=== PATIENT | female | born 1930 | race Caucasian/White ===

== ENCOUNTER 2017-05-14 22:23 | Observation (INO) | payer MEDICARE, OTHER ==
[~2017-05-14] VITALS: Ht 152.4 cm; Wt 47.6 kg
[2017-05-14] MEDS ORDERED: ONDANSETRON 4 MG INJ IV STA (23:23)
[2017-05-14] MEDS ORDERED: SOD CHLORIDE 0.9% 500 ML IV STA (23:23)
[2017-05-14] MEDS ORDERED: morphine 4 MG/ML VIAL IV STA (23:23)
[2017-05-14 23:33] LABS: BASOPHILS % 0.1 % (0.0-2.0); EOSINOPHILS % 0.5 % (0.0-7.0); HEMATOCRIT 40.2 % (37.0-47.0); HEMOGLOBIN 13.2 g/dl (12.0-16.0); LYMPHOCYTES # 0.9 10^3/ul (0.8-2.9); LYMPHOCYTES % 11.7 % (15.0-51.0); MEAN CORPUSCULAR HEMOGLOBIN 30.1 pg (29.0-33.0); MEAN CORPUSCULAR HGB CONC 32.8 g/dl (32.0-37.0); MEAN CORPUSCULAR VOLUME 91.6 fl (82.0-101.0); MONOCYTE # 0.3 10^3/ul (0.3-0.9); MONOCYTES % 4.4 % (0.0-11.0); PLATELET COUNT 179 10^3/UL (140-415); RED BLOOD COUNT 4.39 10^6/ul (4.20-5.40); RED CELL DISTRIBUTION WIDTH 13.2 % (11.5-14.5); WHITE BLOOD COUNT 7.3 10^3/ul (4.8-10.8)
[2017-05-14 23:53] LABS: ALBUMIN/GLOBULIN RATIO 1.21; BILIRUBIN,INDIRECT 0.2 mg/dl (0-1.1); BILIRUBIN,TOTAL 0.2 mg/dl (0.2-1.3); CALCIUM 9.5 mg/dl (8.4-10.2); CREATININE 0.86 mg/dl (0.44-1.00); POTASSIUM 4.2 mmol/L (3.5-5.1); TOTAL PROTEIN 7.3 g/dl (6.1-8.1)
--- NOTE | 2017-05-15 00:26 | RADRPT ---
PROCEDURE: CT Abdomen and pelvis without contrast. CLINICAL INDICATION: Abdominal pain. TECHNIQUE: CT scan of the abdomen and pelvis was performed on a multi-detector high-resolution CT scanner. Contiguous axial images were obtained from the lung bases to the ischial tuberosities wit hout intravenous contrast. Coronal and sagittal reformatted images were also obtained. Images were reviewed on the PACS workstation. One or more of the following dose reduction techniques were used: - Automated exposure control. - Adjustment of the mA and/or kV according to patient size. - Use of iterative reconstruction technique. Exam CTD/vol = 10.96 mGy. Total exam DLP = 589.17 mGy-cm. COMPARISON: None. FINDINGS: Evaluation of the lung bases demonstrates mild bibasilar atelectasis. The heart is mildly enlarged with a trace pericardial effusion. Coronary artery calcifications are present. Abdomen: The liver is normal in size. There is no focal mass or dilatation of the biliary tree. T he gallbladder is not distended. Multiple radiolucent gallstones are identified. The spleen, pancrea s and bilateral adrenal glands are within normal limits. Bilateral kidneys are normal in size with multiple right renal cysts with the largest in the lower pole measuring 7.3 x 7.1 cm. There is no r adiopaque renal or ureteral calculus identified. There is no hydronephrosis or hydroureter. There is no retroperitoneal adenopathy. The abdominal aorta is of normal caliber with extensive atheroscl erotic calcifications. There is moderate retained stool within the rectum. There is circumferential thickening of the dist al rectum with mild perirectal stranding. There is no bowel obstruction or free air. A normal appe ndix is identified. There is no diverticulosis or diverticulitis. There is no ascites. Pelvis: The bladder is unremarkable. The uterus and adnexa are within normal limits. There is no significant pelvic adenopathy or free fluid. Evaluation of the osseous structures demonstrates no suspicious lytic or blastic lesion. There are o ld right-sided rib fractures. IMPRESSION: Circumferential thickening of the distal rectum. Clinical correlation with digital examination is r ecommended to exclude mass. Moderate rectal fecal impaction. Cholelithiasis. Right renal cysts. Vascular calcifications reflective of atherosclerosis. Mild cardiomegaly with trace pericardial effusion. Mild bibasilar atelectasis. .Pa Calzada MD, MD Date Time Electronically viewed and signed by .Pa Calzada MD, MD on 05/15/2017 00:25 .T/
[2017-05-15] MEDS ORDERED: metroNIDAZOLE 500 MG/NS (PMX) 100 ML IVPB STA (00:57)
[2017-05-15] MEDS ORDERED: PIPER-TAZO 3.375 GM IV (PMX) 100 ML IVPB STA (00:57)
--- NOTE | 2017-05-15 01:58 | ERA ---
ER Documentation Chief Complaint Date/Time DATE: 05/15/17 TIME: 01:57 Chief Complaint diarrhea since 3 hours ago HPI This is an 86-year-old female has had uncontrollable diarrhea since 3 hours ago. Sudden onset. Watery diarrhea. No fevers or chills. No sick contacts. No abdominal pain. No other current complaints. ROS All systems reviewed and are negative except as per history of present illness. Allergies Allergies: Coded Allergies: No Known Allergy (Unverified , 05/14/17) PMhx/Soc Hx Alcohol Use: No Hx Substance Use: No Hx Tobacco Use: No Smoking Status: Never smoker Physical Exam Vitals Vital Signs Date Time Temp Pulse Resp B/P Pulse Ox O2 Delivery O2 Flow Rate FiO2 05/14/17 22:26 98.2 83 20 141/65 97 Physical Exam Const: [] Head: Atraumatic Eyes: Normal Conjunctiva ENT: Normal External Ears, Nose and Mouth. Neck: Full range of motion..~ No meningismus. Resp: Clear to auscultation bilaterally Cardio: Regular rate and rhythm, no murmurs Abd: Soft, non tender, non distended. Normal bowel sounds Skin: No petechiae or rashes Back: No midline or flank tenderness Ext: No cyanosis, or edema Neur: Awake and alert Psych: Normal Mood and Affect Result Diagram: 05/14/17 2322 05/14/17 2322 Results 24 hrs Laboratory Tests Test 05/14/17 23:22 White Blood Count 7.310^3/ul Red Blood Count 4.3910^6/ul Hemoglobin 13.2g/dl Hematocrit 40.2% Mean Corpuscular Volume 91.6fl Mean Corpuscular Hemoglobin 30.1pg Mean Corpuscular Hemoglobin Concent 32.8g/dl Red Cell Distribution Width 13.2% Platelet Count 54452^3/UL Mean Platelet Volume 11.0fl Neutrophils % 83.0% Lymphocytes % 11.7% Monocytes % 4.4% Eosinophils % 0.5% Basophils % 0.1% Nucleated Red Blood Cells % 0.0/100WBC Neutrophils # (Manual) 6.110^3/ul Lymphocytes # 0.910^3/ul Monocytes # 0.310^3/ul Eosinophils # 0.010^3/ul Basophils # 0.010^3/ul Nucleated Red Blood Cells # 0.010^3/ul Sodium Level 144mmol/L Potassium Level 4.2mmol/L Chloride Level 107mmol/L Carbon Dioxide Level 28mmol/L Anion Gap 13 Blood Urea Nitrogen 23mg/dl Creatinine 0.86mg/dl Glucose Level 112mg/dl Lactic Acid Level 1.5mmol/L Calcium Level 9.5mg/dl Total Bilirubin 0.2mg/dl Direct Bilirubin 0.00mg/dl Indirect Bilirubin 0.2mg/dl Aspartate Amino Transf (AST/SGOT) 22IU/L Alanine Aminotransferase (ALT/SGPT) 30IU/L Alkaline Phosphatase 61IU/L Total Protein 7.3g/dl Albumin 4.0g/dl Globulin 3.30g/dl Albumin/Globulin Ratio 1.21 Lipase 100U/L Current Medications Medications (Trade) Dose Ordered Sig/Shirely Route PRN Reason Start Time Stop Time Status Last Admin Dose Admin Sodium Chloride (NS) 500 ml @ 500 mls/hr Q1H STAT IV 05/14/17 23:23 05/15/17 00:22 DC 05/14/17 23:31 Morphine Sulfate (morphine) 4 mg ONCE STAT IV 05/14/17 23:23 05/14/17 23:24 DC 05/14/17 23:34 Ondansetron HCl 4 mg 4 mg ONCE STAT IV 05/14/17 23:23 05/14/17 23:24 DC 05/14/17 23:34 Metronidazole 100 ml @ 100 mls/hr ONCE STAT IVPB 05/15/17 00:57 05/15/17 01:56 DC Piperacillin Sod/ Tazobactam Sod (Zosyn 3.375gm/ 100 ml (Pmx)) 100 ml @ 200 mls/hr ONCE STAT IVPB 05/15/17 00:57 05/15/17 01:26 DC 05/15/17 01:31 Procedures/MDM EKG: Rate/Rhythm: [Normal Sinus Rhythm] QRS, ST, T-waves: [No changes consistent w/ acute ischemia] Impression: [No evidence of ischemia or arrhythmia] Medical decision-making: Very pleasant patient comes in with acute diffuse colitis. Patient started on antibiotics. Patient will be admitted to the floor to the hospitalist. Accepting Care Team: Current data and ongoing care discussed at time of admission. Primary: Dr. Jacob Consulting: [XOX[employer]] Outstanding Data: none Departure Diagnosis: Primary Impression: Colitis Condition: Serious ELIZABETH GUZMÁN May 15, 2017 01:58
[2017-05-15 03:00] VITALS: PULSE 128
[2017-05-15 03:40] VITALS: BP 133/64; RESP 19
[2017-05-15] MEDS ORDERED: SOD CHLORIDE 0.9% 1,000 ML IV SCH (03:47)
[2017-05-15] MEDS ORDERED: NACL 0.9% 3 ML SYG IV SCH (04:00)
[2017-05-15] MEDS ORDERED: ACETAMINOPHEN 325 MG TAB PO PRN (04:00)
[2017-05-15] MEDS ORDERED: ONDANSETRON 4 MG INJ IV PRN (04:00)
[2017-05-15] MEDS: SOD CHLORIDE 0.9% 1,000 ML IV SCH ×2 (04:08→14:00)
[2017-05-15 04:39] VITALS: Ht 152.4 cm; Wt 47.6 kg
--- NOTE | 2017-05-15 08:21 | HP ---
Date/Time of Note Date/Time of Note DATE: 05/15/17 TIME: 08:13 Assessment/Plan VTE Prophylaxis VTE Prophylaxis Intervention: SCD's Assessment/Plan Chief Complaint/Hosp Course This is an 86-year-old [facility]: #1 diarrhea: Patient had diarrhea for approximately 3 hours prior to presentation. She does not appear in any acute distress. She does have tenderness palpation of the abdomen. CT scan of the abdomen does show circumferential thickening of the rectal: Examination recommended to rule out mass. It also appears to be fecal impaction. Consult GI. Will order stool studies. Patient was started on Zosyn and Flagyl by the ED. as patient does not have any fevers or white blood cell count will hold off on any further antibiotics at this time. #2 hypertension: Continue to monitor blood pressure, will try to obtain medications from family #3 hyperlipidemia: Hold off on any medication at this time and try to obtain medical records from family #4 arthritis: Hold off any medication at this time and try to obtain records from family #5 thyroid surgery: We will check a TSH level: And try to obtain records from primary #6 DVT and GI prophylaxis: SCDs, Protonix Further treatment strategy will be implemented as per the clinical course Problems: HPI/ROS Admit Date/Time Admit Date/Time May 15, 2017 at 01:50 Hx of Present Illness Chief complaint: Diarrhea My history was limited secondary to patient's dementia and family was unable to be contacted. History was obtained from the ED physician documentation. This is an 86-year-old female has had uncontrollable diarrhea since 3 hours ago. Sudden onset. Watery diarrhea. No fevers or chills. No sick contacts. No abdominal pain. No other current complaints. Allergies: NKDA Medications: See MAR ROS Subjective hx not possible: other (Unable to adequately assess secondary to patient's dementia as well as language barrier) PMH/Family/Social Past Medical History Dementia, hypertension, arthritis, hyperlipidemia Past Surgical History Thyroid surgery, hemorrhoid surgery Family History Significant Family History: other (Able to assess secondary to patient's dementia as well as language barrier) Social History Unable to assess secondary to patient's dementia as well as language barrier Smoking Status: Never smoker Exam/Review of Systems Vital Signs Vitals Vital Signs Date Time Temp Pulse Resp B/P Pulse Ox O2 Delivery O2 Flow Rate FiO2 05/15/17 03:40 97.7 85 19 133/64 95 05/15/17 03:00 Room Air Intake and Output 05/14/17 05/14/17 05/15/17 15:00 23:00 07:00 Intake Total 200 ml Balance 200 ml Exam Exam General: Lying in bed in no acute distress HEENT: Atraumatic, normocephalic. The pupils are equal, round and reactive. Extraocular motor are intact Neck: Supple with full range of motion. No rigidity or meningismus Chest: Nontender Lungs: Clear to auscultation bilaterally no crackles rales or wheezing Heart: Normal S1-S2, Regular rhythm and rate. No overt murmur appreciated Abdomen: Soft, tender to palpation over the lower abdominal quadrant, nondistended normal bowel sounds Extremities: Normal to inspection, no edema no cyanosis Neurologic: Unable to assess secondary to patient's dementia as well as language barrier Additional Comments PROCEDURE: CT Abdomen and pelvis without contrast. CLINICAL INDICATION: Abdominal pain. TECHNIQUE: CT scan of the abdomen and pelvis was performed on a multi- detector high-resolution CT scanner. Contiguous axial images were obtained from the lung bases to the ischial tuberosities without intravenous contrast. Coronal and sagittal reformatted images were also obtained. Images were reviewed on the PACS workstation. One or more of the following dose reduction techniques were used: - Automated exposure control. - Adjustment of the mA and/or kV according to patient size. - Use of iterative reconstruction technique. Exam CTD/vol = 10.96 mGy. Total exam DLP = 589.17 mGy-cm. COMPARISON: None. FINDINGS: Evaluation of the lung bases demonstrates mild bibasilar atelectasis. The heart is mildly enlarged with a trace pericardial effusion. Coronary artery calcifications are present. Abdomen: The liver is normal in size. There is no focal mass or dilatation of the biliary tree. The gallbladder is not distended. Multiple radiolucent gallstones are identified. The spleen, pancreas and bilateral adrenal glands are within normal limits. Bilateral kidneys are normal in size with multiple right renal cysts with the largest in the lower pole measuring 7.3 x 7.1 cm. There is no radiopaque renal or ureteral calculus identified. There is no hydronephrosis or hydroureter. There is no retroperitoneal adenopathy. The abdominal aorta is of normal caliber with extensive atherosclerotic calcifications. There is moderate retained stool within the rectum. There is circumferential thickening of the distal rectum with mild perirectal stranding. There is no bowel obstruction or free air. A normal appendix is identified. There is no diverticulosis or diverticulitis. There is no ascites. Pelvis: The bladder is unremarkable. The uterus and adnexa are within normal limits. There is no significant pelvic adenopathy or free fluid. Evaluation of the osseous structures demonstrates no suspicious lytic or blastic lesion. There are old right-sided rib fractures. IMPRESSION: Circumferential thickening of the distal rectum. Clinical correlation with digital examination is recommended to exclude mass. Moderate rectal fecal impaction. Cholelithiasis. Right renal cysts. Vascular calcifications reflective of atherosclerosis. Mild cardiomegaly with trace pericardial effusion. Mild bibasilar atelectasis. .Pa Calzada MD, MD Date Time Electronically viewed and signed by .Pa Calzada MD, on 05/15/2017 00:25 .T/ CC: ELIZABETH GUZMÁN Labs Result Diagram: 05/14/17232105/14/172321 Medications Medications Current Medications Sodium Chloride (NS) 1,000 ml @ 100 mls/hr Q10H IV Last administered on t 04:08; Admin Dose 100 MLS/HR; Start 05/15/17 at 04:00 Ondansetron HCl (Zofran Inj) 4 mg Q6H PRN IV NAUSEA AND/OR VOMITING; Start 05/15 at 04:00 Acetaminophen (Tylenol Tab) 650 mg Q6H PRN PO PAIN LEVEL 1-3 OR FEVER; Start at 04:00 Famotidine (Pepcid Iv) 20 mg DAILY IV ; Start 05/15/17 at 09:00 ROBIN BALDWIN May 15, 2017 08:21
[2017-05-15 08:23] VITALS: BP 111/56; RESP 20
[2017-05-15] MEDS ORDERED: FAMOTIDINE 20 MG INJ IV SCH (09:00)
[2017-05-15] MEDS ORDERED: POLYETHYLENE GLYCOL 17 GM PACKET GTB SCH (10:00)
[2017-05-15 11:22] LABS: BASOPHILS % 0.2 % (0.0-2.0); EOSINOPHILS # 0.1 10^3/ul (0.0-0.5); HEMATOCRIT 36.3 % (37.0-47.0); HEMOGLOBIN 11.4 g/dl (12.0-16.0); LYMPHOCYTES # 0.9 10^3/ul (0.8-2.9); LYMPHOCYTES % 17.9 % (15.0-51.0); MEAN CORPUSCULAR HEMOGLOBIN 28.7 pg (29.0-33.0); MEAN CORPUSCULAR HGB CONC 31.4 g/dl (32.0-37.0); MEAN CORPUSCULAR VOLUME 91.4 fl (82.0-101.0); MEAN PLATELET VOLUME 11.4 fl (7.4-10.4); MONOCYTE # 0.3 10^3/ul (0.3-0.9); MONOCYTES % 6.2 % (0.0-11.0); NEUTROPHILS % 74.5 % (39.0-77.0); PLATELET COUNT 147 10^3/UL (140-415); RED BLOOD COUNT 3.97 10^6/ul (4.20-5.40); RED CELL DISTRIBUTION WIDTH 13.3 % (11.5-14.5); WHITE BLOOD COUNT 5.2 10^3/ul (4.8-10.8)
[2017-05-15 11:49] LABS: ALBUMIN 3.3 g/dl (3.3-4.9); ALBUMIN/GLOBULIN RATIO 1.26; BILIRUBIN,INDIRECT 0.5 mg/dl (0-1.1); BILIRUBIN,TOTAL 0.5 mg/dl (0.2-1.3); CALCIUM 8.5 mg/dl (8.4-10.2); CREATININE 0.75 mg/dl (0.44-1.00); POTASSIUM 4.5 mmol/L (3.5-5.1); TOTAL PROTEIN 5.9 g/dl (6.1-8.1)
[2017-05-15 14:01] VITALS: BP 118/60; RESP 20
[2017-05-15 14:33] LABS: ADD UMIC NO; UR ASCORBIC ACID NEGATIVE (NEGATIVE); UR BILIRUBIN (Dip) NEGATIVE (NEGATIVE); UR BLOOD (Dip) NEGATIVE (NEGATIVE); UR CLARITY CLEAR (CLEAR); UR COLOR YELLOW (YELLOW); UR GLUCOSE (Dip) NEGATIVE (NEGATIVE); UR KETONES (Dip) NEGATIVE (NEGATIVE); UR LEUKOCYTE ESTERASE (Dip) NEGATIVE Leu/ul (NEGATIVE); UR NITRITE (Dip) NEGATIVE (NEGATIVE); UR SPECIFIC GRAVITY (Dip) 1.014 (1.003-1.030); UR TOTAL PROTEIN (Dip) NEGATIVE (NEGATIVE); UR UROBILINOGEN (Dip) NEGATIVE (NEGATIVE)
--- NOTE | 2017-05-15 14:39 | PDOCDIS ---
Discharge Instructions CONDITION Patient Condition: Good HOME CARE INSTRUCTIONS: Special Diet: regular ACTIVITY: Activity Restrictions: No Restrictions FOLLOW UP/APPOINTMENTS Follow-up Plan It is important to increase the amount of fiber in your diet and take an laxative like Miralax to prevent constipation Please follow up with your primary doctor for management of this condition in the future SURENDRA COHEN MD May 15, 2017 14:39
--- NOTE | 2017-05-15 14:48 | DS ---
Date/Time of Note Date/Time of Note DATE: 05/15/17 TIME: 14:44 Discharge Summary Admission/Discharge Info Admit Date/Time May 15, 2017 at 01:50 Discharge Date/Time Patient Condition: Good Hx of Present Illness Chief complaint: Diarrhea My history was limited secondary to patient's dementia and family was unable to be contacted. History was obtained from the ED physician documentation. This is an 86-year-old female has had uncontrollable diarrhea since 3 hours ago. Sudden onset. Watery diarrhea. No fevers or chills. No sick contacts. No abdominal pain. No other current complaints. Allergies: NKDA Medications: See NOV Hospital Course Patient on CT scan was shown to have large amount of stool burden in the rectal vault. A MATT was performed which showed good rectal tone and no mass felt. Normal formed stool was present but not impacted. An enema was performed and the patient evacuated a very large BM. The patient did receive a dose of abx in the ED but she showed no evidence by labs, exam, symptoms, or imaging to suggest an infectious process so these were discontinued. Her presentation was deemed to be consistent with constipation and overflow fecal incontinence. This was dicsussed wiht her daughter in law who cares for the patient. She was encouraged to increase fiber, water, and take laxatives. She will follow up with a primary doctor. Primary Care Provider Care Physician No Primary Time spent on discharge: > 30 minutes Pending Labs Laboratory Tests Test 05/14/17 23:22 05/15/17 09:00 05/15/17 10:09 05/15/17 10:10 White Blood Count 7.310^3/ul (4.8-10.8) 5.210^3/ul (4.8-10.8) Red Blood Count 4.3910^6/ul (4.20-5.40) 3.9710^6/ul (4.20-5.40) Hemoglobin 13.2g/dl (12.0-16.0) 11.4g/dl (12.0-16.0) Hematocrit 40.2% (37.0-47.0) 36.3% (37.0-47.0) Mean Corpuscular Volume 91.6fl (82.0-101.0) 91.4fl (82.0-101.0) Mean Corpuscular Hemoglobin 30.1pg (29.0-33.0) 28.7pg (29.0-33.0) Mean Corpuscular Hemoglobin Concent 32.8g/dl (32.0-37.0) 31.4g/dl (32.0-37.0) Red Cell Distribution Width 13.2% (11.5-14.5) 13.3% (11.5-14.5) Platelet Count 93723^3/UL (140-415) 01117^3/UL (140-415) Mean Platelet Volume 11.0fl (7.4-10.4) 11.4fl (7.4-10.4) Neutrophils % 83.0% (39.0-77.0) 74.5% (39.0-77.0) Lymphocytes % 11.7% (15.0-51.0) 17.9% (15.0-51.0) Monocytes % 4.4% (0.0-11.0) 6.2% (0.0-11.0) Eosinophils % 0.5% (0.0-7.0) 1.0% (0.0-7.0) Basophils % 0.1% (0.0-2.0) 0.2% (0.0-2.0) Nucleated Red Blood Cells % 0.0/100WBC (0.0-0.0) 0.0/100WBC (0.0-0.0) Neutrophils # (Manual) 6.110^3/ul (1.7-7.5) 3.910^3/ul (1.7-7.5) Lymphocytes # 0.910^3/ul (0.8-2.9) 0.910^3/ul (0.8-2.9) Monocytes # 0.310^3/ul (0.3-0.9) 0.310^3/ul (0.3-0.9) Eosinophils # 0.010^3/ul (0.0-0.5) 0.110^3/ul (0.0-0.5) Basophils # 0.010^3/ul (0.0-0.1) 0.010^3/ul (0.0-0.1) Nucleated Red Blood Cells # 0.010^3/ul (0.0-0.0) 0.010^3/ul (0.0-0.0) Sodium Level 144mmol/L (135-144) 142mmol/L (135-144) Potassium Level 4.2mmol/L (3.5-5.1) 4.5mmol/L (3.5-5.1) Chloride Level 107mmol/L (97-110) 109mmol/L (97-110) Carbon Dioxide Level 28mmol/L (21-31) 28mmol/L (21-31) Anion Gap 13 (8-16) 10 (8-16) Blood Urea Nitrogen 23mg/dl (7-20) 15mg/dl (7-20) Creatinine 0.86mg/dl (0.44-1.00) 0.75mg/dl (0.44-1.00) Glucose Level 112mg/dl (70-220) 86mg/dl (70-220) Lactic Acid Level 1.5mmol/L (0.5-2.0) Calcium Level 9.5mg/dl (8.4-10.2) 8.5mg/dl (8.4-10.2) Total Bilirubin 0.2mg/dl (0.2-1.3) 0.5mg/dl (0.2-1.3) Direct Bilirubin 0.00mg/dl (0.00-0.20) 0.00mg/dl (0.00-0.20) Indirect Bilirubin 0.2mg/dl (0-1.1) 0.5mg/dl (0-1.1) Aspartate Amino Transf (AST/SGOT) 22IU/L (15-46) 21IU/L (15-46) Alanine Aminotransferase (ALT/SGPT) 30IU/L (13-69) 30IU/L (13-69) Alkaline Phosphatase 61IU/L (42-121) 52IU/L (42-121) Total Protein 7.3g/dl (6.1-8.1) 5.9g/dl (6.1-8.1) Albumin 4.0g/dl (3.3-4.9) 3.3g/dl (3.3-4.9) Globulin 3.30g/dl (1.3-3.2) 2.60g/dl (1.3-3.2) Albumin/Globulin Ratio 1.21 1.26 Lipase 100U/L (23-300) Stool Occult Blood NEGATIVE (NEGATIVE) Magnesium Level 1.9mg/dl (1.7-2.5) Thyroid Stimulating Hormone (TSH) 1.240MIU/L (0.465-4.680) SURENDRA COHEN MD May 15, 2017 14:48
== END 2017-05-15 17:49 | disposition home or self-care (01) ==
LOC: E/R 22:23 → PP2 05-15 01:50
PROVIDERS: ADMIT Family Medicine; ATTEND Family Medicine
DX: R19.7 Diarrhea, unspecified (principal); I10 Essential (primary) hypertension; E78.5 Hyperlipidemia, unspecified; M19.90 Unspecified osteoarthritis, unspecified site; F03.90 Unspecified dementia, unspecified severity, without behavioral disturbance, psychotic disturbance, mood disturbance, and anxiety
CPT/HCPCS: 36415; 74176; 80053; 81003; 82270; 83605; 83690; 83735; 84443; 85025; 86674; 87086; 87177; 87205; 96374; 96375; 99285; G0378; J2270; J2405; J2543; J7030; J7040